=== PATIENT | female | born 1975 | race Caucasian/White ===

== ENCOUNTER 2018-12-12 04:13 | Emergency (ER) | payer SELFPAY ==
[~2018-12-12] VITALS: Ht 157.5 cm; Wt 65.9 kg
[~2018-12-12 04:13] MED LIST: UNKNOWN PAIN MED PO
[2018-12-12 04:19] VITALS: BP 132/90
== END 2018-12-12 04:53 | disposition left against medical advice (07) ==
LOC: EMS 04:14
DX: G43.909 Migraine, unspecified, not intractable, without status migrainosus (principal); Z53.21 Procedure and treatment not carried out due to patient leaving prior to being seen by health care provider

== ENCOUNTER 2024-06-18 10:19 | Inpatient (IN) | payer MEDICAID ==
[~2024-06-18] VITALS: Ht 157.5 cm; Wt 88.6 kg
[~2024-06-18 10:19] MED LIST changes: +DEXAMETHASONE SOD PHOS 4 MG/ML VIAL ONE; +FentaNYL CITRATE PF 100 MCG/2 ML VIAL ONE; +KETOROLAC TROMETHAMINE 60 MG/2 ML VIAL IM ONE; +LIDOCAINE/PF 2% 5 ML VIAL ONE; +METOCLOPRAMIDE HCL 5 MG/ML 2 ML VIAL ONE; +MIDAZOLAM HCL 2 MG/2 ML VIAL ONE; +ONDANSETRON HCL 4 MG/2 ML VIAL ONE; +PROPOFOL 1% 20 ML VIAL IVP ONE; +ROCURONIUM BROMIDE 10 MG/ML 5 ML VIAL ONE; +SUCCINYLCHOLINE CHLORIDE 20 MG/ML 10 ML VIAL ONE; +SUGAMMADEX SODIUM 200 MG/2 ML VIAL IVP ONE; -UNKNOWN PAIN MED PO
[2024-06-18 11:41] LABS: BASOPHILS % (AUTO) 0.5 % (0.0-2.0); EOSINOPHILS % (AUTO) 0.2 % (1.0-6.0); HEMATOCRIT 43.6 % (36-46); HEMOGLOBIN 14.6 g/dL (12.0-16.0); LYMPHOCYTES # (AUTO) 3.1 K/uL (1.0-4.8); LYMPHOCYTES % (AUTO) 19.7 % (22.0-44.0); MEAN CORPUSCULAR HEMOGLOBIN 30.6 pg (26.0-34.0); MEAN CORPUSCULAR HGB CONC 33.4 G/dL (31.0-37.0); MEAN CORPUSCULAR VOLUME 92 fL (80-100); MONOCYTES % (AUTO) 6.1 % (2.0-9.0); NEUTROPHILS # (AUTO) 11.7 K/uL (1.8-7.7); NEUTROPHILS % (AUTO) 73.5 % (40.0-70.0); PLATELET COUNT (AUTO) 341 K/uL (150-450); RED BLOOD CELL COUNT(AUTO) 4.76 MIL/uL (4.00-5.20); RED CELL DISTRIBUTION WIDTH 13.4 % (11.5-14.5); WHITE BLOOD COUNT (AUTO) 15.9 K/uL (4.5-11.0)
[2024-06-18] MEDS: SODIUM CHLORIDE 0.9% 1,000 ML IV ONE ×2 (11:42→11:43)
[2024-06-18] MEDS: ONDANSETRON HCL 4 MG/2 ML VIAL IVP ONE (11:44)
[2024-06-18] MEDS: MORPHINE SULFATE 4 MG/ML SYRINGE IVP ONE (11:44)
[2024-06-18] MEDS: IOHEXOL 9 MG/ML 500 ML BOTTLE PO ONE (11:44)
[2024-06-18 11:50] LABS: ANION GAP 13 mmol/L (8-16); CALCIUM, TOTAL 8.9 mg/dL (8.8-10.5); CARBON DIOXIDE 23 mmol/L (22-29); CHLORIDE 103 mmol/L (98-107); CREATININE 0.67 mg/dL (0.60-1.30); GLOMERULAR FILTR. RATE CALC > 60 mL/min (>60); GLUCOSE,RANDOM 113 mg/dL (70-110); LIPASE 26 U/L (16-77); POTASSIUM 3.4 mmol/L (3.5-5.1); SODIUM SERUM 139 mmol/L (136-145); UREA NITROGEN, BLOOD 7 mg/dL (7-18)
[2024-06-18 12:12] LABS: APPEARANCE,URINE CLEAR (CLEAR); BILIRUBIN,URINE NEGATIVE (NEGATIVE); COLOR,URINE COLORLESS (YELLOW); GLUCOSE, URINE (UA) NEGATIVE (NEGATIVE); KETONES,URINE NEGATIVE (NEGATIVE); LEUKOCYTE ESTERASE ,URINE NEGATIVE (NEGATIVE); NITRATE,URINE NEGATIVE (NEGATIVE); OCCULT BLOOD,URINE NEGATIVE (NEGATIVE); PROTEIN,URINE NEGATIVE (NEGATIVE); SPECIFIC GRAVITIY, URINE 1.003 (1.003-1.030); UROBILINOGEN,URINE <=1.0 mg/dL (<=1.0)
[2024-06-18 12:20] LABS: ALANINE AMINOTRANSFERASE 84 U/L (12-78); ALKALINE PHOSPHATASE 126 U/L (46-116); ASPARTATE AMINOTRANSFERASE 37 U/L (15-37); BILIRUBIN,TOTAL 0.4 mg/dL (0.1-1.0); TOTAL PROTEIN, SERUM 7.6 g/dL (6.4-8.2)
[2024-06-18] MEDS ORDERED: IOHEXOL 350 MG/ML 100 ML VIAL ONE (12:28)
[2024-06-18] MEDS ORDERED: SODIUM CHLORIDE 0.9% 100 ML ONE (12:28)
[2024-06-18] MEDS: ETHYL ALCOHOL 62% ANTISEPTIC NASAL SANITIZER 0.6 ML AMPUL NASAL ONE (14:31)
[2024-06-18] MEDS: CHLORHEXIDINE GLUCONATE 2% TOWELETTE [2'S/6'S] TP ONE (14:37)
[2024-06-18] MEDS: RINGERS SOLUTION,LACTATED 1,000 ML IV ONE (14:39)
[2024-06-18] MEDS ORDERED: SODIUM CL IRRIG SOLN BAG 3,000 ML IRRIG ONE (15:11)
[2024-06-18] MEDS ORDERED: MetroNIDAZOLE 500 MG/NACL 100 ML IV ONE (15:33)
[2024-06-18] MEDS: BUPIVACAINE 0.25%/EPI 1:200,000/PF 30 ML VIAL ONE (15:40)
[2024-06-18] MEDS ORDERED: HYDROmorphone HCL 2 MG/ML SYRINGE IVP PRN (15:45)
[2024-06-18] MEDS ORDERED: ONDANSETRON HCL 4 MG/2 ML VIAL IVP PRN (15:45)
[2024-06-18] MEDS ORDERED: MEPERIDINE-PF 25 MG/ML VIAL IVP PRN (15:45)
[2024-06-18] MEDS ORDERED: MORPHINE SULFATE 2 MG/ML SYRINGE IVP PRN (15:45)
[2024-06-18] MEDS ORDERED: FentaNYL CITRATE PF 100 MCG/2 ML VIAL IVP PRN (15:45)
[2024-06-18] MEDS ORDERED: MAGNESIUM HYDROXIDE SUSPENSION 30 ML UDCUP PO PRN (15:45)
[2024-06-18] MEDS ORDERED: ACETAMINOPHEN 1000 MG/ISO-OSM 100 ML IV ONE (16:03)
[2024-06-18] MEDS: ACETAMINOPHEN 1000 MG/ISO-OSM 100 ML IV ONE (16:05)
[2024-06-18] MEDS ORDERED: POTASSIUM CHL 10 MEQ/WATER 50 ML IV PRN (18:00)
[2024-06-18] MEDS: HEPARIN SODIUM,PORCINE 5,000 UNITS/ML VIAL SQ SCH (18:35)
[2024-06-18 18:36] VITALS: BP 138/83; PULSE 78; RESP 18; TEMP 98.3; O2SAT 97
[2024-06-18] MEDS: ACETAMINOPHEN 325 MG TABLET PO PRN (18:40)
[2024-06-18] MEDS ORDERED: SODIUM CHLORIDE 0.9% 500 ML IV ONE (18:43)
[2024-06-18 19:45] VITALS: BP 136/82; PULSE 91; RESP 20; TEMP 98.3; O2SAT 96
[2024-06-18] MEDS: OXYGEN THERAPY IH SCH (20:00)
[2024-06-18] MEDS: POTASSIUM CHLORIDE 20 MEQ ER TABLET PO PRN (20:35)
[2024-06-18] MEDS: DOCUSATE SODIUM 100 MG CAPSULE PO SCH (20:35)
[2024-06-18] MEDS: HYDROCODONE/ACETAMINOPHEN 5-325 MG TABLET PO PRN (21:00)
[2024-06-18] MEDS: PIPERACILLIN/TAZO 3.375 GM/D5W 50 ML IV SCH (21:05)
[2024-06-18 22:50] VITALS: PULSE 93; RESP 20; O2SAT 98
[2024-06-19 04:08] VITALS: BP 141/71; PULSE 70; RESP 20; TEMP 97.6; O2SAT 96
[2024-06-19 08:19] VITALS: BP 140/72; PULSE 72; RESP 20; TEMP 98.1; O2SAT 97
[2024-06-19 08:24] LABS: BASOPHILS % (AUTO) 0.3 % (0.0-2.0); EOSINOPHILS % (AUTO) 0 % (1.0-6.0); HEMATOCRIT 44.3 % (36-46); HEMOGLOBIN 14.8 g/dL (12.0-16.0); LYMPHOCYTES # (AUTO) 1.9 K/uL (1.0-4.8); LYMPHOCYTES % (AUTO) 10.4 % (22.0-44.0); MEAN CORPUSCULAR HGB CONC 33.4 G/dL (31.0-37.0); MEAN CORPUSCULAR VOLUME 93 fL (80-100); MONOCYTES # (AUTO) 0.4 K/uL (0.1-1.0); MONOCYTES % (AUTO) 2.2 % (2.0-9.0); NEUTROPHILS # (AUTO) 15.7 K/uL (1.8-7.7); PLATELET COUNT (AUTO) 327 K/uL (150-450); RED BLOOD CELL COUNT(AUTO) 4.78 MIL/uL (4.00-5.20); RED CELL DISTRIBUTION WIDTH 13.6 % (11.5-14.5); WHITE BLOOD COUNT (AUTO) 18.1 K/uL (4.5-11.0)
[2024-06-19 08:33] LABS: ANION GAP 12 mmol/L (8-16); CALCIUM, TOTAL 9.1 mg/dL (8.8-10.5); CARBON DIOXIDE 21 mmol/L (22-29); CHLORIDE 105 mmol/L (98-107); CREATININE 0.59 mg/dL (0.60-1.30); GLOMERULAR FILTR. RATE CALC > 60 mL/min (>60); GLUCOSE,RANDOM 135 mg/dL (70-110); POTASSIUM 3.7 mmol/L (3.5-5.1); SODIUM SERUM 138 mmol/L (136-145); UREA NITROGEN, BLOOD 9 mg/dL (7-18)
[2024-06-19] MEDS: PANTOPRAZOLE SODIUM 40 MG DR TABLET PO SCH (08:36)
[2024-06-19 08:41] LABS: NEUTROPHILS % (AUTO) 87.1 % (40.0-70.0)
[2024-06-19 08:42] LABS: RBC MORPHOLOGY COMMENT NORMAL RBC MORPH
[2024-06-19] MEDS ORDERED: IOHEXOL 9 MG/ML 500 ML BOTTLE ONE ×2 (11:24)
[2024-06-19] MEDS ORDERED: SODIUM CHLORIDE 0.9% 100 ML ONE ×2 (11:25→11:26)
[2024-06-19] MEDS ORDERED: IOHEXOL 350 MG/ML 100 ML VIAL ONE ×2 (11:25→11:26)
[2024-06-19 16:41] VITALS: BP 154/69; PULSE 68; RESP 18; TEMP 97.9; O2SAT 100
[2024-06-19] MEDS: BISACODYL 10 MG RECTAL RECTAL SUPPOSITORY PR PRN (16:46)
[2024-06-19] MEDS: ZOLPIDEM TARTRATE 5 MG TABLET PO PRN (20:55)
[2024-06-19] MEDS: SODIUM PHOSPHATE,MONO-DIBASIC 133 ML ENEMA PR ONE (21:00)
[2024-06-19 22:03] VITALS: BP 136/60; PULSE 60; RESP 18; TEMP 98.8; O2SAT 100
[2024-06-20 04:26] VITALS: BP 146/70; PULSE 71; RESP 20; TEMP 97.9; O2SAT 96
[2024-06-20 06:31] VITALS: BP 132/72; PULSE 65; RESP 20; TEMP 98.2; O2SAT 96
[2024-06-20] MEDS ORDERED: AMOX-457 PO (07:43)
[2024-06-20] MEDS ORDERED: ACET-66 PO (07:44)
[2024-06-20 08:59] LABS: BASOPHILS % (AUTO) 0.6 % (0.0-2.0); EOSINOPHILS % (AUTO) 0.3 % (1.0-6.0); HEMATOCRIT 44.4 % (36-46); HEMOGLOBIN 14.6 g/dL (12.0-16.0); LYMPHOCYTES # (AUTO) 4.9 K/uL (1.0-4.8); LYMPHOCYTES % (AUTO) 36.2 % (22.0-44.0); MEAN CORPUSCULAR HEMOGLOBIN 30.8 pg (26.0-34.0); MEAN CORPUSCULAR HGB CONC 32.9 G/dL (31.0-37.0); MEAN CORPUSCULAR VOLUME 94 fL (80-100); MONOCYTES # (AUTO) 0.9 K/uL (0.1-1.0); MONOCYTES % (AUTO) 6.3 % (2.0-9.0); NEUTROPHILS # (AUTO) 7.7 K/uL (1.8-7.7); NEUTROPHILS % (AUTO) 56.6 % (40.0-70.0); PLATELET COUNT (AUTO) 334 K/uL (150-450); RED BLOOD CELL COUNT(AUTO) 4.74 MIL/uL (4.00-5.20); WHITE BLOOD COUNT (AUTO) 13.6 K/uL (4.5-11.0)
[2024-06-20 09:00] VITALS: BP 140/97; PULSE 66; RESP 19; TEMP 98; O2SAT 98
[2024-06-20 09:08] LABS: ANION GAP 8 mmol/L (8-16); CALCIUM, TOTAL 8.8 mg/dL (8.8-10.5); CARBON DIOXIDE 26 mmol/L (22-29); CHLORIDE 106 mmol/L (98-107); CREATININE 0.64 mg/dL (0.60-1.30); GLOMERULAR FILTR. RATE CALC > 60 mL/min (>60); GLUCOSE,RANDOM 106 mg/dL (70-110); POTASSIUM 3.6 mmol/L (3.5-5.1); SODIUM SERUM 140 mmol/L (136-145); UREA NITROGEN, BLOOD 12 mg/dL (7-18)
== END 2024-06-20 17:00 | disposition home or self-care (01) | DRG 234 ==
LOC: EMS 10:19 → EDH 15:48 → 4E 18:02
PROVIDERS: ADMIT Internal Medicine; ATTEND Internal Medicine
PROC: 0DTJ4ZZ Resection of Appendix, Percutaneous Endoscopic Approach (ICD-10-PCS; principal; 2024-06-18 14:45)
DX: K35.80 Unspecified acute appendicitis (principal); K76.0 Fatty (change of) liver, not elsewhere classified; K86.89 Other specified diseases of pancreas; E87.6 Hypokalemia; K42.9 Umbilical hernia without obstruction or gangrene; K44.9 Diaphragmatic hernia without obstruction or gangrene; K80.20 Calculus of gallbladder without cholecystitis without obstruction; G43.909 Migraine, unspecified, not intractable, without status migrainosus; Z63.4 Disappearance and death of family member; Z80.0 Family history of malignant neoplasm of digestive organs; Z79.899 Other long term (current) drug therapy
CPT/HCPCS: 74177; 74178; 80048; 80076; 81003; 83690; 84703; 85025; 87081; 88304; 99285; G0238; G0378; J0131; J0330; J1100; J1644; J1885; J2250; J2270; J2405; J2543; J2704; J2765; J3010; J3480; J3490; J7030; J7040; J7050; J7120

== ENCOUNTER 2024-07-15 20:06 | Emergency (ER) | payer MEDICAID ==
[~2024-07-15] VITALS: Ht 147.3 cm; Wt 63.6 kg
[~2024-07-15 20:06] MED LIST changes: +ACET-66 PO; +AMOX-457 PO; -DEXAMETHASONE SOD PHOS 4 MG/ML VIAL ONE; -FentaNYL CITRATE PF 100 MCG/2 ML VIAL ONE; -KETOROLAC TROMETHAMINE 60 MG/2 ML VIAL IM ONE; -LIDOCAINE/PF 2% 5 ML VIAL ONE; -METOCLOPRAMIDE HCL 5 MG/ML 2 ML VIAL ONE; -MIDAZOLAM HCL 2 MG/2 ML VIAL ONE; -ONDANSETRON HCL 4 MG/2 ML VIAL ONE; -PROPOFOL 1% 20 ML VIAL IVP ONE; -ROCURONIUM BROMIDE 10 MG/ML 5 ML VIAL ONE; -SUCCINYLCHOLINE CHLORIDE 20 MG/ML 10 ML VIAL ONE; -SUGAMMADEX SODIUM 200 MG/2 ML VIAL IVP ONE
[2024-07-15 20:23] VITALS: TEMP 97.6
[2024-07-15 21:07] LABS: BASOPHILS % (AUTO) 0.7 % (0.0-2.0); EOSINOPHILS % (AUTO) 0 % (1.0-6.0); HEMATOCRIT 45.4 % (36-46); LYMPHOCYTES # (AUTO) 1.8 K/uL (1.0-4.8); LYMPHOCYTES % (AUTO) 13.5 % (22.0-44.0); MEAN CORPUSCULAR HEMOGLOBIN 30.5 pg (26.0-34.0); MEAN CORPUSCULAR HGB CONC 33.2 G/dL (31.0-37.0); MEAN CORPUSCULAR VOLUME 92 fL (80-100); MONOCYTES # (AUTO) 0.4 K/uL (0.1-1.0); MONOCYTES % (AUTO) 2.8 % (2.0-9.0); PLATELET COUNT (AUTO) 377 K/uL (150-450); RED BLOOD CELL COUNT(AUTO) 4.93 MIL/uL (4.00-5.20); RED CELL DISTRIBUTION WIDTH 13.8 % (11.5-14.5); WHITE BLOOD COUNT (AUTO) 13.2 K/uL (4.5-11.0)
[2024-07-15 21:17] LABS: ANION GAP 13 mmol/L (8-16); CALCIUM, TOTAL 9.6 mg/dL (8.8-10.5); CARBON DIOXIDE 24 mmol/L (22-29); CHLORIDE 103 mmol/L (98-107); GLOMERULAR FILTR. RATE CALC > 60 mL/min (>60); GLUCOSE,RANDOM 156 mg/dL (70-110); POTASSIUM 3.4 mmol/L (3.5-5.1); SODIUM SERUM 140 mmol/L (136-145); UREA NITROGEN, BLOOD 8 mg/dL (7-18)
[2024-07-15 21:25] LABS: TROPONIN I-HIGH SENSITIVITY 5 ng/L (<51)
[2024-07-15 21:30] LABS: ALANINE AMINOTRANSFERASE 101 U/L (12-78); ALBUMIN 4.1 g/dL (3.4-5.0); ALKALINE PHOSPHATASE 131 U/L (46-116); ASPARTATE AMINOTRANSFERASE 51 U/L (15-37); BILIRUBIN,TOTAL 0.4 mg/dL (0.1-1.0); HCG,QUANTITATIVE 1 mIU/mL (0-6); LIPASE 29 U/L (16-77); TOTAL PROTEIN, SERUM 7.9 g/dL (6.4-8.2)
[2024-07-15 22:15] VITALS: BP 142/89; PULSE 81; RESP 17; O2SAT 99
[2024-07-15] MEDS: ONDANSETRON HCL 4 MG/2 ML VIAL IVP ONE (22:48)
[2024-07-15] MEDS: MORPHINE SULFATE 4 MG/ML SYRINGE IVP ONE (22:48)
[2024-07-15] MEDS: SODIUM CHLORIDE 0.9% 1,000 ML IV ONE ×2 (22:49)
[2024-07-16 00:05] LABS: APPEARANCE,URINE CLEAR (CLEAR); BILIRUBIN,URINE NEGATIVE (NEGATIVE); COLOR,URINE COLORLESS (YELLOW); GLUCOSE, URINE (UA) NEGATIVE (NEGATIVE); KETONES,URINE NEGATIVE (NEGATIVE); LEUKOCYTE ESTERASE ,URINE NEGATIVE (NEGATIVE); NITRATE,URINE NEGATIVE (NEGATIVE); OCCULT BLOOD,URINE NEGATIVE (NEGATIVE); PH,URINE 7.5 (5.0-8.0); PROTEIN,URINE NEGATIVE (NEGATIVE); SPECIFIC GRAVITIY, URINE 1.004 (1.003-1.030); UROBILINOGEN,URINE <=1.0 mg/dL (<=1.0)
== END 2024-07-16 01:34 | disposition left against medical advice (07) ==
LOC: EMS 20:06
DX: K86.9 Disease of pancreas, unspecified (principal); R10.13 Epigastric pain; G43.909 Migraine, unspecified, not intractable, without status migrainosus
CPT/HCPCS: 99285; 74176; 96374; 96361; 96375; 80048; 80076; 81003; 83690; 84484; 84702; 85025; 36415; J2270; J2405; J7030